=== PATIENT | female | born 1955 | race African-American/Black ===

== ENCOUNTER 2018-07-24 15:38 | Inpatient (IN) | payer OTHER ==
[~2018-07-24] VITALS: Ht 170.2 cm; Wt 63.5 kg
[2018-07-24 18:13] LABS: BASOPHILS % 1.1 % (0.0-2.0); EOSINOPHILS % 0.1 % (0.0-5.0); HEMATOCRIT. 37.5 % (36.0-48.0); HEMOGLOBIN. 12.6 g/dL (12.0-16.0); LYMPHOCYTES % 23.6 % (20.0-50.0); MEAN PLATELET VOLUME 9.2 fl (7.4-10.4); NEUTROPHILS % 67.2 % (40.0-76.0); PLATELET 160 x1000/uL (130-400); RED BLOOD CELL COUNT 4.21 mill/uL (4.2-5.4); RED CELL DISTRIBUTION WIDTH 15.4 % (11.6-14.6)
[2018-07-24 18:22] LABS: CHLORIDE 111 mEq/L (98-107)
[2018-07-24] MEDS ORDERED: ACETAMINOPHEN 325MG TABLET PO ONE (21:00)
[2018-07-24 23:37] VITALS: BP 139/80
[2018-07-25] VITALS: BP 139/80
[2018-07-25] MEDS ORDERED: HYDROCODONE/ACETAMINOPHEN 10/325MG TABLET PO PRN (01:15)
[2018-07-25 04:00] VITALS: BP 135/75
[2018-07-25 08:00] VITALS: BP 156/81
[2018-07-25] MEDS ORDERED: ASPIRIN 325MG EC TABLET PO SCH (09:00)
[2018-07-25 11:54] LABS: CLARITY URINE CLEAR (CLEAR); COLOR URINE YELLOW (YELLOW); KETONES URINE NEGATIVE (NEGATIVE); LEUKOCYTE ESTERASE URINE 2+ (NEGATIVE); NITRITE URINE NEGATIVE (NEGATIVE); OCCULT BLOOD URINE 1+ (NEGATIVE); PH URINE 5.5 (4.5-8.0); PROTEIN URINE NEGATIVE (NEGATIVE); SPECIFIC GRAVITY URINE 1.003 (1.005-1.030)
[2018-07-25] MEDS ORDERED: CEFTRIAXONE 1,000 MG in DEXTROSE 5% WATER 50 ML IV SCH (12:45)
[2018-07-25 14:00] VITALS: BP 138/78
[2018-07-25 16:00] VITALS: BP 158/80
[2018-07-25] MEDS ORDERED: LEVOFLOXACIN 500MG PREMIX 100 ML IV SCH (16:00)
[2018-07-25] MEDS: MULTIVITAMINS,THER W-MINERALS TABLET PO SCH (17:58)
[2018-07-25] MEDS: THIAMINE HCL 100MG TABLET PO SCH (17:58)
[2018-07-25] MEDS: FOLIC ACID 1MG TABLET PO SCH (17:58)
[2018-07-25 20:00] VITALS: BP 121/77
[2018-07-25] MEDS: AMLODIPINE 5MG TABLET PO SCH (20:39)
[2018-07-25 23:08] LABS: *AMPHETAMINES SCREEN URINE NEGATIVE (NEGATIVE); *BARBITURATES SCREEN URINE NEGATIVE (NEGATIVE); *BENZODIAZEPINES SCREEN URINE NEGATIVE (NEGATIVE); *COCAINE SCREEN URINE NEGATIVE (NEGATIVE)
[2018-07-25 23:09] LABS: CANNABINOID URINE SCREEN NEGATIVE (NEGATIVE); METHADONE URINE SCREEN NEGATIVE (NEGATIVE); OPIATES URINE SCREEN PRESUMTIVE POSITIVE (NEGATIVE); PHENCYCLIDINE URINE SCREEN PRESUMTIVE POSITIVE (NEGATIVE)
[2018-07-26] VITALS: BP 132/80
[2018-07-26 04:00] VITALS: BP 139/75
[2018-07-26 06:18] LABS: BASOPHILS % 0.5 % (0.0-2.0); EOSINOPHILS % 0.6 % (0.0-5.0); HEMATOCRIT. 35.7 % (36.0-48.0); HEMOGLOBIN. 12.1 g/dL (12.0-16.0); LYMPHOCYTES % 29.1 % (20.0-50.0); MEAN CORPUSCULAR HEMOGLOBIN 29.8 pg (28.0-32.0); MEAN PLATELET VOLUME 9.3 fl (7.4-10.4); MONOCYTES % 12.2 % (2.0-8.0); NEUTROPHILS % 57.6 % (40.0-76.0); PLATELET 143 x1000/uL (130-400); RED BLOOD CELL COUNT 4.05 mill/uL (4.2-5.4); RED CELL DISTRIBUTION WIDTH 15.6 % (11.6-14.6)
[2018-07-26 06:19] LABS: CHLORIDE 104 mEq/L (98-107)
[2018-07-26 08:00] VITALS: BP 124/82
[2018-07-26] MEDS: FOLIC ACID 1MG TABLET PO SCH (08:37)
[2018-07-26] MEDS: MULTIVITAMINS,THER W-MINERALS TABLET PO SCH (08:37)
[2018-07-26] MEDS: AMLODIPINE 5MG TABLET PO SCH (08:37)
[2018-07-26] MEDS: THIAMINE HCL 100MG TABLET PO SCH (08:37)
[2018-07-26 13:00] VITALS: BP 120/76
== END 2018-07-26 14:00 | disposition home or self-care (01) | DRG 48 ==
LOC: ER 15:38 → 5WST 20:57 → ENRESERV 22:33
PROVIDERS: ADMIT Internal Medicine; ATTEND Internal Medicine
DX: G90.8 Other disorders of autonomic nervous system (principal); E44.1 Mild protein-calorie malnutrition; E87.8 Other disorders of electrolyte and fluid balance, not elsewhere classified; I11.9 Hypertensive heart disease without heart failure; N39.0 Urinary tract infection, site not specified; F10.10 Alcohol abuse, uncomplicated; F16.90 Hallucinogen use, unspecified, uncomplicated; W18.39XA Other fall on same level, initial encounter; Y93.89 Activity, other specified; Y92.89 Other specified places as the place of occurrence of the external cause; Y99.8 Other external cause status; Z68.21 Body mass index [BMI] 21.0-21.9, adult; Z88.0 Allergy status to penicillin; Z71.41 Alcohol abuse counseling and surveillance of alcoholic
CPT/HCPCS: 36415; 70551; 71045; 80048; 80061; 80305; 84443; 84484; 93005; 93306; 93880; 97162; 99285; J1956; J7040; J7050

== ENCOUNTER 2024-08-23 08:33 | Emergency (ER) | payer MEDICARE, OTHER ==
[~2024-08-23] VITALS: Ht 167.6 cm; Wt 73.0 kg
[2024-08-23 08:34] VITALS: O2SAT 99
[2024-08-23] MEDS: VANCOMYCIN 1G PREMIX 200 ML IV ONE (09:19)
[2024-08-23] MEDS: SODIUM CHLORIDE 0.9% (SEPSIS BOLUS) IV ONE (09:20)
[2024-08-23 09:22] LABS: EOSINOPHILS % 0.3 % (0.0-5.0); HEMATOCRIT. 44.2 % (36.0-48.0); HEMOGLOBIN. 14.5 g/dL (12.0-16.0); LYMPHOCYTES % 28.1 % (20.0-50.0); MEAN CORPUSCULAR HEMOGLOBIN 29.4 pg (28.0-32.0); MEAN CORPUSCULAR HGB CONC 32.9 g/dL (31.0-37.0); MEAN CORPUSCULAR VOLUME 89.3 fL (81.0-99.0); MEAN PLATELET VOLUME 9.9 fl (7.4-10.4); MONOCYTES % 14.6 % (2.0-8.0); PLATELET 188 x1000/uL (130-400); RED BLOOD CELL COUNT 4.95 mill/uL (4.2-5.4); RED CELL DISTRIBUTION WIDTH 17.3 % (11.6-14.6); WHITE BLOOD COUNT 5.9 x1000/uL (4.5-11.0)
[2024-08-23 09:24] LABS: CHLORIDE 102 mEq/L (98-107); POTASSIUM 4.1 mEq/L (3.5-5.1); SODIUM 135 mEq/L (136-145)
[2024-08-23 09:25] LABS: CALCIUM 9.3 mg/dL (8.7-10.4); CARBON DIOXIDE 23 mEq/L (21-32)
[2024-08-23 09:30] LABS: CREATININE 0.4 mg/dL (0.6-1.0); GLUCOSE 86 mg/dL (70-105)
[2024-08-23 09:32] LABS: ALANINE AMINOTRANSFERASE 24 IU/L (10-49); ALBUMIN 3.7 g/dL (3.2-4.8); ASPARTATE AMINOTRANSFERASE 113 IU/L (<34); BILIRUBIN DIRECT 0.8 mg/dL (<=3.0)
[2024-08-23 09:33] LABS: BILIRUBIN TOTAL 1.7 mg/dL (0.1-1.0); LACTIC ACID 2.5 mmol/L (0.4-2.0)
[2024-08-23] MEDS: ACETAMINOPHEN 325MG TABLET PO ONE (09:56)
[2024-08-23 10:01] LABS: PROTEIN TOTAL 8.9 g/dL (6.0-8.3); UREA NITROGEN BLOOD < 5 mg/dL (9-23)
[2024-08-23 10:07] LABS: INR 1.1; PROTHROMBIN TIME 11.8 sec (9.6-11.0)
[2024-08-23 12:50] VITALS: BP 154/96; PULSE 103; RESP 22; TEMP 36.83628; O2SAT 99
== END 2024-08-23 12:58 | disposition short-term general hospital (02) ==
LOC: ER 08:45 → CANBEDREQ 10:23 → ER 12:58
DX: A41.9 Sepsis, unspecified organism (principal); R65.20 Severe sepsis without septic shock; N61.0 Mastitis without abscess; I10 Essential (primary) hypertension; Z88.0 Allergy status to penicillin
CPT/HCPCS: 80076; 80048; 83605; 85025; 85610; 85651; 87040; 87086; 36415; 93005; 96365; 99291; J3370; J7030; Z7610 ×3